=== PATIENT | female | born 1955 | race Two or more races ===

== ENCOUNTER 2024-10-22 12:00 | Emergency (ER) | payer OTHER ==
[~2024-10-22] VITALS: Ht 162.6 cm; Wt 63.5 kg
[2024-10-22] MEDS ORDERED: METO-357 PO (12:45)
[2024-10-22] MEDS ORDERED: LOSA1TAB36 PO (12:45)
[2024-10-22 13:10] VITALS: BP 220/110; TEMP 98; O2SAT 95
== END 2024-10-22 13:22 | disposition home or self-care (01) ==
LOC: ER 12:09
DX: I10 Essential (primary) hypertension (principal); I25.10 Atherosclerotic heart disease of native coronary artery without angina pectoris; I73.9 Peripheral vascular disease, unspecified; Z79.899 Other long term (current) drug therapy